=== PATIENT | female | born 1985 | race Caucasian/White ===

== ENCOUNTER 2024-01-05 06:07 | Day surgery (SDC) | payer BC ==
[~2024-01-05] VITALS: Ht 172.7 cm; Wt 70.3 kg
[2024-01-05] MEDS ORDERED: ceFAZolin SODIUM 2 GM in D5W 100 ML IV ONE (07:00)
[2024-01-05] MEDS ORDERED: fentaNYL CITRATE/PF 100 MCG/2 ML AMP ONE (07:23)
[2024-01-05] MEDS ORDERED: MIDAZOLAM HCL 2 MG/2 ML VIAL (VERSED) ONE (07:23)
[2024-01-05] MEDS ORDERED: FUROSEMIDE 40 MG/4 ML VIAL ONE (07:35)
[2024-01-05] MEDS ORDERED: ONDANSETRON HCL 4 MG/2 ML VIAL ONE ×2 (07:35→10:43)
[2024-01-05] MEDS ORDERED: GLYCOPYRROLATE 0.2 MG/ML VIAL ONE (07:35)
[2024-01-05] MEDS ORDERED: SEVOFLURANE 15 MIN GAS INH ONE (07:35)
[2024-01-05] MEDS ORDERED: METOCLOPRAMIDE HCL 10 MG/2 ML VIAL ONE (07:35)
[2024-01-05] MEDS ORDERED: LR 1,000 ML IV.SOLN IV ONE (07:35)
[2024-01-05] MEDS ORDERED: NEOSTIGMINE METHYLSULFATE 1 MG/ML, 10 ML VIAL ONE (07:35)
[2024-01-05] MEDS ORDERED: NS IRRIG SOLN 1000 ML IR ONE (07:35)
[2024-01-05] MEDS ORDERED: ROCURONIUM BROMIDE 10 MG/ML (ZEMURON) ONE (07:35)
[2024-01-05] MEDS ORDERED: WATER FOR IRRIGATION,STERILE 1,000 ML IRRIG.SOLN IR ONE (07:35)
[2024-01-05] MEDS ORDERED: PROPOFOL 200MG/ 20ML VIAL (DIPRIVAN) IV ONE (07:35)
[2024-01-05 09:17] VITALS: O2SAT 97
[2024-01-05] MEDS ORDERED: HYDROcodone/ACETAMIN 5-325 MG TAB (NORCO/ VICODIN) PO PRN (10:00)
[2024-01-05] MEDS ORDERED: OXYCODONE/ACETAMINOPHEN 5-325 TABLET PO PRN ×2 (10:00)
[2024-01-05] MEDS ORDERED: HYDROmorphone 1 MG/ML INJ. CARTRIDGE IVP PRN ×3 (10:15)
[2024-01-05] MEDS ORDERED: ONDANSETRON HCL 4 MG/2 ML VIAL IVP PRN (10:15)
[2024-01-05] MEDS ORDERED: LABETALOL 100 MG/ 20ML VIAL IVP PRN (10:15)
[2024-01-05] MEDS ORDERED: METOCLOPRAMIDE HCL 10 MG/2 ML VIAL IVP PRN (10:15)
[2024-01-05] MEDS ORDERED: ePHEDrine sulfate 50 MG/ML VIAL IVP PRN (10:15)
[2024-01-05] MEDS: ONDANSETRON HCL 4 MG/2 ML VIAL IVP PRN (10:46)
[2024-01-05] MEDS ORDERED: SIMETHICONE 80 MG TAB.CHEW PO SCH (13:00)
[2024-01-05 16:26] VITALS: BP_SYST 111; PULSE 63; RESP 17
== END 2024-01-05 14:49 | disposition home or self-care (01) ==
LOC: SDS 06:07 → SMU 06:07 → SDS 14:49
PROVIDERS: ATTEND Specialist
DX: Z30.2 Encounter for sterilization (principal); D28.1 Benign neoplasm of vagina; N83.8 Other noninflammatory disorders of ovary, fallopian tube and broad ligament; N39.3 Stress incontinence (female) (male); N81.10 Cystocele, unspecified; Z98.890 Other specified postprocedural states; Z79.899 Other long term (current) drug therapy
CPT/HCPCS: 87081; 58670; 57288; 57240; 88305; J0690; J3490; J2765; J3465; J2405; J2704; J3010; J7060; J7120; C1727; C1771; J2710; J1940